=== PATIENT | male | born 1945 | race Two or more races ===

== ENCOUNTER 2021-04-16 08:00 | Outpatient (CLI) | payer OTHER | END 2021-04-16 08:15 | disposition home or self-care (01) | LOC: PPH VACUNA 08:00 | PROVIDERS: ATTEND Emergency Medicine Pediatric Emergency Medicine | DX: Z23 Encounter for immunization (principal) ==

== ENCOUNTER 2022-12-22 06:32 | Day surgery (SDC) | payer OTHER ==
[~2022-12-22] VITALS: Ht 149.9 cm; Wt 54.4 kg
[~2022-12-22 06:32] MED LIST: ATORVASTATIN CA10 MG PO; LANOXIN62.5 MCG PO; LASIX20 MG PO; TOPROL XL50 M1 PO
== END 2022-12-22 15:05 | disposition home or self-care (01) ==
LOC: CIR.AMB 06:32
PROVIDERS: ATTEND Surgery Surgery of the Hand
DX: M65.841 Other synovitis and tenosynovitis, right hand (principal); Z20.822 Contact with and (suspected) exposure to COVID-19; I10 Essential (primary) hypertension